=== PATIENT | male | born 1995 | race African-American/Black ===

== ENCOUNTER 2017-04-24 21:18 | Emergency (ER) | payer BC, OTHER ==
[~2017-04-24] VITALS: Ht 172.7 cm; Wt 80.0 kg
[2017-04-24 21:19] VITALS: BP 139/88; PULSE 86; RESP 15; TEMP 98.7; O2SAT 98
--- NOTE | 2017-04-24 21:37 | PD ---
Physical Exam Date Seen by Provider: Apr 24, 2017 Time Seen by Provider: 21:33 Narrative 22-year-old Afro[place] male presents to the emergency department with Gonorrhea. Patient states he was exposed to it. He now has some discomfort in both testicles. Pain is 2/10. He denies dysuria or discharge. Vital signs stable. Patient awaiting med bed placement. Data Data Last Documented VS Vital Signs Date Time Temp Pulse Resp B/P (MAP) Pulse Ox O2 Delivery O2 Flow Rate FiO2 04/24/17 21:19 98.7 86 15 139/88 (105) 98 Room Air [facility] Medical Record Reviewed: Yes Supervised Visit with ALSIE: Yes Condition: Stable Kolby Brown Apr 24, 2017 21:37
--- NOTE | 2017-04-24 21:44 | PD ---
HPI Chief Complaint: Complaint Time Seen by Provider: 21:40 Travel History International Travel<30 days: No Contact w/Intl Traveler<30days: No Traveled to known affect area: No History of Present Illness HPI 22-year-old male presents to emergency department to be treated for chlamydia. Patient states that his girlfriend was recently diagnosed with this. She is currently being treated. Patient denies any dysuria or penile discharge. States he has a "tingling in his testicles." Denies any pain. Abdominal pain, nausea, vomiting. No fever or chills. He has no other symptoms to report. [facility] Past Medical History Medical History: Denies Significant Hx Social History Alcohol Use: No Tobacco Use: No Substance Use: No Allergies-Medications (Allergen,Severity, Reaction): Coded Allergies: No Known Allergies (Unverified , 04/24/17) Reported Meds & Prescriptions Reported Meds & Active Scripts Active No Active Prescriptions or Reported Medications Review of Systems Except as stated in HPI: all other systems reviewed are Neg Physical Exam Narrative GENERAL: Well-nourished, well-developed male patient, in no acute distress SKIN: Focused skin assessment warm/dry. HEAD: Normocephalic. EYES: No scleral icterus. No injection or drainage. NECK: Supple, trachea midline. No JVD or lymphadenopathy. CARDIOVASCULAR: Regular rate and rhythm without murmurs, gallops, or rubs. RESPIRATORY: Breath sounds equal bilaterally. No accessory muscle use. GASTROINTESTINAL: Abdomen soft, non-tender, nondistended. GENITOURINARY: Circumcised. Testes descended bilaterally without evidence of rotation. No lesions or erythema. No urethral discharge. MUSCULOSKELETAL: No cyanosis, or edema. BACK: Nontender without obvious deformity. No CVA tenderness. Data Data Last Documented VS Vital Signs Date Time Temp Pulse Resp B/P (MAP) Pulse Ox O2 Delivery O2 Flow Rate FiO2 04/24/17 21:56 98.3 80 16 131/68 (89) 99 04/24/17 21:19 Room Air Orders Orders Urinalysis - C+S If Indicated (04/24/17 21:40) Gc And Chlamydia Pcr (04/24/17 21:40) Ceftriaxone Inj (Rocephin Inj) (04/24/17 21:45) Azithromycin (Zithromax) (04/24/17 21:45) Labs Laboratory Tests Test 04/24/17 21:44 Urine Color YELLOW Urine Turbidity CLEAR Urine pH 6.0 Urine Specific [place] 1.017 Urine Protein NEG mg/dL Urine Glucose (UA) NEG mg/dL Urine Ketones NEG mg/dL Urine Occult Blood NEG Urine Nitrite NEG Urine Bilirubin NEG Urine Urobilinogen 2.0 MG/DL Urine Leukocyte Esterase SMALL Urine RBC 2 /hpf Urine WBC 6 /hpf Microscopic Urinalysis Comment CULT NOT INDICATED Chlamydia trachomatis DNA (PCR) DETECTED Neisseria gonorrhoeae DNA (PCR) NOT DETECTED MDM Medical Decision Making Medical Screen Exam Complete: Yes Emergency Medical Condition: Yes Medical Record Reviewed: Yes Differential Diagnosis urethritis vs cystitis vs std vs normal examination Narrative Course 22 year old male presents to ED for treatment of chlamydia. He has no significant symptoms, however his girlfriend is currently being treated. UA and GC PCR are sent. Pt is treated prior to results. He is counseled on safe sex practices and discharged home to follow up with his primary care provider. He agrees to return immediately with any acute worsening of symptoms Diagnosis Primary Impression: Exposure to STD Additional Impression: Chlamydia Referrals: Primary Care Physician [facility] Dept. Patient Instructions: General Instructions, Safe Sex (ED) Additional Instructions: Follow-up with a primary care provider Practice safe sex utilizing condom prophylaxis Return immediately to the emergency department with any acute worsening of symptoms Med/Other Pt SpecificInfo: No Change to Meds Scripts No Active Prescriptions or Reported Meds Disposition: 01 DISCHARGE HOME Condition: Stable RashadAmy SHAHEEN Apr 24, 2017 21:44
[2017-04-24] MEDS ORDERED: AZITHROMYCIN 250 MG TAB PO ONE (21:45)
[2017-04-24] MEDS ORDERED: cefTRIAXone 250 MG VIAL IM ONE (21:45)
[2017-04-24 21:56] VITALS: BP 131/68; TEMP 98.3
[2017-04-24 22:15] LABS: BLOOD, URINE NEG (NEG); COMMENT (UR) CULT NOT INDICATED; CULTURE IF INDICATED CULT NOT INDICATED; GLUCOSE,URINE NEG (NEG); KETONE, URINE NEG (NEG); NITRITE,URINE NEG (NEG); URINE COLOR YELLOW (YELLW/STRAW)
[2017-04-25 00:23] LABS: CHLAMYDIA PCR DETECTED (NOT DETECT); NEISSERIA PCR NOT DETECTED (NOT DETECT)
== END 2017-04-24 22:22 | disposition home or self-care (01) ==
LOC: NEPK 21:18
DX: A56.2 Chlamydial infection of genitourinary tract, unspecified (principal)
CPT/HCPCS: 81001; 87491; 87591; 96372; 99284; J0696